=== PATIENT | male | born 1960 | race Caucasian/White ===

== ENCOUNTER → 2024-02-24 10:26 | Outpatient (CLI) | payer OTHER, SELFPAY ==
--- NOTE | 2024-02-24 | DI.MRI.S_ITS ---
PROCEDURE: MR KNEE LT WO CON INDICATIONS: Contusion of left knee TECHNIQUE: Noncontrast sagittal PD fast spin echo and T2 fast spin echo with fat saturation, sagittal 3-D FLASH with fat saturation; coronal T1 spin echo and PD fast spin echo with fat saturation, and axial PD fast spin echo with fat saturation through the knee. COMPARISON: None. FINDINGS: Image quality: Excellent. Menisci: Peripheral displacement of medial meniscus bowing medial collateral ligament. There is suggestion of a bucket-handle type tear involving medial meniscus with centrally displaced medial meniscal fragment anterior to the PCL. The lateral meniscus is intact. Cruciate ligaments: The anterior cruciate ligament is thickened with intrasubstance T2 hyperintense signal. The posterior cruciate ligament is intact. Medial structures: The medial collateral ligament appears mildly thickened. Visualized portions of the pes anserinus tendons appear normal. No abnormal bursal fluid. Lateral structures: The lateral collateral ligament, long and short heads of the biceps femoris tendon appear intact. The popliteus tendon appears normal. Iliotibial band appears normal. Anterior structures: The quadriceps tendon is intact. Diffusely thickened patellar tendon is seen. Patellar alignment is normal. No femoral trochlear dysplasia or ventral trochlear prominence. No edema in the infrapatellar fat pad. Bones and cartilage: No bone marrow contusions or fractures. 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 Marrow edema is seen involving posterior lateral femoral condyle and weight-bearing portion of lateral tibial plateau. No discrete fracture line is seen. Articulating cartilage in lateral femoral tibial compartment and patellofemoral compartment is normal in thickness. Joint space: There is small to moderate knee joint fluid. There is a small popliteal cyst measures 1.4 x 2.8 x 6.2 cm in size. Normal appearing synovial plicae are incidentally noted. IMPRESSION: 1. Finding is suggestive of a bucket-handle type tear involving medial meniscus with centrally displaced torn medial meniscal fragment anterior to the PCL. The lateral meniscus is intact. 2. Low-grade ACL sprain. The PCL is intact. 3. Low-grade MCL sprain near its femoral insertion. 4. Moderate patellar tendinosis. The quadriceps tendon is intact. 5. 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 Contusion involving posterior lateral femoral condyle and weight-bearing portion of lateral tibial plateau. No fracture or dislocation. 6. Small to moderate joint effusion and a small popliteal cyst. No loose bodies. Dictated by: Syed De León M.D. on 02/24/2024 at 17:01 Approved by: Syed De León M.D. on 02/24/2024 at 17:08
== END ==
PROVIDERS: PCP Family Medicine; Referring Provider Orthopaedic Surgery Foot and Ankle Surgery; Visit Provider Orthopaedic Surgery Foot and Ankle Surgery
DX: S80.02XA Contusion of left knee, initial encounter (principal); S83.512A Sprain of anterior cruciate ligament of left knee, initial encounter; S83.412A Sprain of medial collateral ligament of left knee, initial encounter; M17.12 Unilateral primary osteoarthritis, left knee; M25.462 Effusion, left knee; M71.22 Synovial cyst of popliteal space [Baker], left knee
CPT/HCPCS: 73721